=== PATIENT | female | born 1995 | race African-American/Black ===

== ENCOUNTER 2021-11-02 17:15 | Emergency (ER) | payer OTHER | END 2021-11-02 19:43 | disposition home or self-care (01) | LOC: CSHERS 17:15 | DX: F43.0 Acute stress reaction (principal); J45.909 Unspecified asthma, uncomplicated | CPT/HCPCS: 99284 ==

== ENCOUNTER 2022-10-28 19:18 | Emergency (ER) | payer OTHER ==
[2022-10-28] MEDS ORDERED: Lidocaine 1% (PF) 30 ML VIAL ONE (21:15)
[2022-10-28] MEDS ORDERED: cefTRIAXone\\ROCEPHIN 500 MG VIAL ONE (21:15)
[2022-10-29 16:36] LABS: Chlamydia by PCR Not Detected (NotDetected); GC by PCR Not Detected (NotDetected)
== END 2022-10-28 21:35 | disposition home or self-care (01) ==
LOC: CSHERS 19:18
DX: N89.8 Other specified noninflammatory disorders of vagina (principal)
CPT/HCPCS: 87480; 87491; 87510; 87591; 87660; 96372; 99283; J0696; J2001